=== PATIENT | female | born 1990 | race Caucasian/White ===

== ENCOUNTER 2024-02-24 00:56 | Day surgery (SDC) | payer OTHER, SELFPAY ==
[2024-02-17 15:18] VITALS: BMI 35.4
--- NOTE | 2024-02-17 15:25 | PC.NURSE ---
Report to the Outpatient Waiting Room, entrance under the green pavilion located off [facility], at time _0600_ on date _[id number]_. Planned Procedure Time: _0730_.? Time changes happen often and if your time is changed the preop area will call you the afternoon before. - You and your visitor will be asked to self-screen and do not enter if you have any COVID symptoms. Please call surgeon if you need to reschedule. - A mask is optional within the hospital at this time. Patients may have clear liquids (water, carbonated beverages, clear teas, apple juice) until 3 hours prior to surgery with a maximum of 20 ounces. - No food from midnight until time of surgery and no smoking. This includes no chewing gum, candy or mints. Take only the following medications with a SIP of water on the morning of surgery: __Levothyroxine___ DO NOT STOP ANY OF YOUR OTHER PRESCRIPTION MEDICATIONS PRIOR TO SURGERY EXCEPT THE FOLLOWING Medications to discontinue per physician ____None Date to take last dose Please no make-up, nail macedonian, hairspray, perfume, deodorant, or body powder the day of surgery.? No jewelry (including any body piercings) or valuables the day of surgery, leave them at home.? Please take a shower or bath the night before, or the morning of, surgery with an antibacterial soap.? Wear comfortable, loose fitting clothing.? - Jewelry must be removed prior to entering the operating room.? Rings and piercings that are not removed may be cut off. - The hospital will not accept responsibility for valuables.? - Please leave all valuables, including medications, at home the day of surgery. If you are going home after surgery, a licensed sweeper driver must drive you home.? - NO public transportation without another adult if you receive anesthesia. - We recommend that an adult stay with you for 24 hours following discharge. - We also recommend that you do not drive, make important decision, drink alcoholic beverages, or take any drugs that were not prescribed by your health care provider for at least 24 hours after your discharge time. Follow any additional instructions given to you from your surgeon. Telephone instructions given to Betito___and asked if any additional questions and then verbalized understanding. Patient advised to call surgeon office or pre surgery nurse liaison [phone] if any additional questions.
[2024-02-24] VITALS (13 sets, daily range): BP systolic 105–134; BP diastolic 60–91; PULSE 72–100; RESP 12–18; TEMP 36.4–36.6; O2SAT 97–100
[2024-02-24] MEDS: ACETAMINOPHEN 500 MG TABLET 1000 MG PO (06:35)
[2024-02-24] MEDS: LACTATED RINGERS 1,000 ML 30 ML IV CONT ×2 (06:40→08:44)
[2024-02-24] MEDS: KETOROLAC 15 MG/ML VIAL (*BKC) IV PUSH ×2 (06:45→08:26)
[2024-02-24 07:02] LABS: Alanine Aminotransferase 29 U/L (6-35); Albumin Level 4.1 g/dL (3.5-5.1); Alkaline Phosphatase 102 U/L (38-126); Amylase 76 U/L (30-110); Aspartate Amino Transferase 30 U/L (14-36); Bilirubin,Total 0.3 mg/dL (0.2-1.3); Lipase 101 U/L (23-300)
[2024-02-24 07:12] LABS: BEDSIDEPREGUCG Negative (Negative)
--- NOTE | 2024-02-24 07:13 | P.PNAN_ITS ---
Anes - Initial Pre Proc Eval Procedure: Operation Date: 02/24/24 07:30 Proposed Procedures p Laparoscopic Cholecystectomy, Possible Open - Kush Tapia MD Date/Time: 02/24/24 07:13 Surgeon: Kush Tapia MD Pre Op Diagnosis: Symptomatic Cholelithiasis Patient Data Age: 33 Gender: F Height: 1.63 m Weight: 93 kg Last Vital Signs Temp 97.8 F 02/24/24 06:06 Pulse 84 02/24/24 06:06 Resp 18 02/24/24 06:06 BP 123/91 H 02/24/24 06:06 Pulse Ox 100 02/24/24 06:06 O2 Del Method Room Air 02/24/24 06:06 Allergies Allergy/AdvReac Type Severity Reaction Status Date / Time No Known Allergies Allergy Verified 02/24/24 07:07 Home Medications Medication Instructions Recorded Confirmed Type levothyroxine 175 mcg tablet 175 mcg PO DAILY 02/01/24 02/24/24 History (Synthroid) omeprazole 40 mg capsule,delayed 40 mg PO DAILY 02/01/24 02/24/24 History release Laboratory Tests 02/24/24 02/24/24 06:35 07:09 Total Bilirubin 0.3 mg/dL (0.2-1.3) Direct Bilirubin 0.0 mg/dL (0-0.3) AST 30 U/L (14-36) ALT 29 U/L (6-35) Alkaline Phosphatase 102 U/L (38-126) Total Protein 8.0 g/dL (6.3-8.2) Albumin 4.1 g/dL (3.5-5.1) Amylase 76 U/L (30-110) Lipase 101 U/L (23-300) POC Urine HCG, Qual Negative (Negative) Patient hx anesthesia problems: none Family hx anesthesia problems: none Results Review: All pre-operative results and documents have been reviewed as part of the pre- operative evaluation. [facility] Past Medical History Medical History (Updated 02/01/24 @ 13:59 by Federica Kerr) Anxiety and depression GERD (gastroesophageal reflux disease) Thyroid disorder Surgical History Surgical History (Updated 02/01/24 @ 13:52 by Federica Kerr) History of wisdom tooth extraction Family History Family History Other Hypertension Thyroid disorder Social History Social History Smoking status: Never smoker Alcohol intake: never Do You Feel Safe in your Home?: Yes Lack of Transportation: No Lack of Food: Never True Current Housing: I Have Housing Concerned About Future Housing: No Difficulty Paying Gas/Electric Bills: No Difficulty Paying for Meds: No Currently Unemployed: No Education: Bachelor's Degree Difficulty w/ Childcare or Family Care: No Living arrangements: with family Spiritual care concerns: No Anes - Eval Final PreProcedure Day of Procedure 02/24/24 07:13 Patient weight: obese Heart: regular rate and rhythm Lungs: clear to auscultation Airway: Mallampati scale class II Neurological: alert and oriented Last oral intake: >/= 8 hours ASA classification: II Emergent: no Anesthetic plan: proceed Anesthesia type and monitoring: general ETT and standard monitoring Results Review: All pre-operative results and documents have been reviewed as part of the pre- operative evaluation. Informed Consent: The patient's anesthetic plan and its attendant risks and benefits were disc ussed with the patient/family/POA. Questions were solicited and answers provided to the satisfaction of the patient/family/POA.
[2024-02-24] MEDS: SCOPOLAMINE 1 MG PATCH 1 PATCH TRANSDERM (07:15)
--- NOTE | 2024-02-24 07:15 | WPDHPUPDATE1 ---
History and Physical Update Update Date/Time: 02/24/24 07:15 History and Physical has been reviewed, including an updated exam of the patient. There are NO changes in the patient's condition. Risks, benefits, and alternatives have been discussed and questions answered. Patient agrees to proceed with procedure.
[2024-02-24] MEDS: ceFAZolin 2 GM/D5W 50 ML 2 GM/50 ML BAG IVPB (07:22)
[2024-02-24] MEDS: LIDO 1%/EPINEPHRINE 1:100,000 50 ML VIAL 30 ML INFILTRATE (07:48)
[2024-02-24] MEDS: BUPivacaine HCL 0.5% PF 30 ML VIAL INFILTRATE (07:52)
--- NOTE | 2024-02-24 08:44 | W.PM.PROC2 ---
Procedure Note - Detailed Date of Procedure 02/24/24 Pre-op Diagnosis Symptomatic Cholelithiasis Post-op Diagnosis Same Procedure Performed Laparoscopic cholecystectomy Surgeon Kush Tapia MD Anesthesia General Indications Patient is a 33-year-old female who on imaging has gallstones has been having intermittent right upper quadrant epigastric abdominal pain with eating. No evidence of common bile duct stones. No evidence of acute cholecystitis. Presents now for an elective laparoscopic cholecystectomy. Findings Patient mildly distended gallbladder. Gallbladder wall was minimally thickened. No adhesions of the duodenum, stomach, or omentum were found. Multiple gallstones were noted within the gallbladder. Description of Procedure After informed consent was obtained patient brought to the operating room where she was placed supine position and general endotracheal anesthesia was administered. The abdomen was then prepped and draped usual sterile fashion. A time-out was then performed correctly identifying the patient as well as procedure to be performed. She was given perioperative IV antibiotics. I then entered the abdomen left upper quadrant utilizing a 5mm Optiview port. Once inside the abdomen insufflated to adequate pneumoperitoneum of 15mmHg of CO2. No adhesions were seen around the area the umbilicus so I placed a 5mm periumbilical trocar port and then switched the laparoscopic to the periumbilical port. Looking into the upper portions of the abdomen I then placed a 10mm epigastric trocar port and 2 more 5mm right subcostal trocar ports all under direct visualization. The gallbladder was mildly distended but the gallbladder wall was not thickened or edematous or erythematous. There were no adhesions to the gallbladder wall. A laparoscopic grasper was used to hold the gallbladder at the dome of the gallbladder was elevated over the right half liver towards the right shoulder. A 2nd grasper was used to hold the gallbladder at the infundibulum. I then proceeded to strip down the visceral peritoneum off of the infundibular gallbladder to identify the cystic duct. The cystic duct was then dissected out circumferentially. The cystic artery was then identified to have both an anterior and posterior branch. Both these branches were then separately dissected out circumferentially. The posterior wall the gallbladder at the infundibulum dissected free of the liver into the critical view was obtained. At this point I then placed 2 clips proximally cystic duct and 2 clips distally high on the infundibulum of the gallbladder. The cystic duct was then divided with Endo [facility]. In a similar fashion the anterior posterior branch of the cystic artery were then clipped and the divided as well. The gallbladder was then resected off liver utilized electrocautery without spilling any gallstones or any bile. The gallbladder was then placed into an Endo-Catch bag and brought out through the epigastric port site. Gallbladder gallstones within were sent to pathology for examination. I then irrigated out the right upper quadrant the abdomen gallbladder fossa copious amounts sterile saline solution. Hemostasis was excellent. No evidence of bile leak was noted. I then aspirated the fluid from the right upper quadrant the abdomen from the pelvis. All the trocar ports were then removed under direct visualization all port sites appeared hemostatic. The abdomen was then allowed to decompress. I then irrigated out the port sites sterile saline solution. A 10mm epigastric trocar port fascial defect was then closed utilizing 0 Vicryl suture in a figure-eight fashion. The skin edges were then approximated all the port sites utilizing a running subcuticular 4-0 Monocryl suture. The incisions were then cleaned the skin glue and sterile dressings were applied. The patient tolerated the procedure well no complications. All sponges, needles, and instrument counts were correct at the end procedure. EBL was _15__cc. The patient was awakened and taken to recovery in stable and satisfactory condition. Implants None Estimated Blood Loss 15 Drains No Packing No Pathology Yes (Gallbladder and gallstones sent to pathology) Complications No immediate complications Condition Stable Disposition PACU [facility] Billing Surgery - Charge Forward: Surgery Billing
[2024-02-24] MEDS: fentaNYL CITRATE INJ (*CRX) 100 MCG/2 ML VIAL 25 MCG IV PUSH ×4 (09:25→09:36)
[2024-02-24] MEDS: oxyCODONE HCL (*CRX) 5 MG TAB IR PO (10:04)
[2024-02-24] MEDS: ONDANSETRON INJ 4 MG/2 ML VIAL IV PUSH (10:50)
[2024-02-24] MEDS: diphenhydrAMINE HCl INJ 50 MG/ML VIAL 12.5 MG IV PUSH (11:21)
== END 2024-02-24 11:50 | disposition home or self-care (01) ==
PROVIDERS: Visit Provider Surgery
PROC: 0FT44ZZ Resection of Gallbladder, Percutaneous Endoscopic Approach (ICD-10-PCS; CPT 47562; principal; 2024-02-24 07:30)
DX: K80.10 Calculus of gallbladder with chronic cholecystitis without obstruction (principal); F41.8 Other specified anxiety disorders; K21.9 Gastro-esophageal reflux disease without esophagitis; E07.9 Disorder of thyroid, unspecified; E66.9 Obesity, unspecified; Z68.35 Body mass index [BMI] 35.0-35.9, adult
CPT/HCPCS: 47562; 36415; 80076; 82150; 83690; 88304; A9270; J0690; J1100; J1171; J1200; J1885; J2003; J2004; J2250; J2405; J2704; J3010; J7030; J7120